=== PATIENT | female | born 1940 | race Caucasian/White ===

== ENCOUNTER 2020-08-09 23:59 | Emergency (ER) | payer MEDICARE, BC ==
--- NOTE | 2020-08-10 00:47 | EDM.PDOC ---
ED HPI GENERAL MEDICAL PROBLEM - General Chief Complaint: Upper Extremity Injury/Pain Stated Complaint: REACTION TO BUG BITE Time Seen by Provider: 08/10/20 00:20 Source of Information: Reports: Patient, Family History Limitations: Reports: No Limitations - History of Present Illness INITIAL COMMENTS - FREE TEXT/NARRATIVE: 80-year-old female presents with a large painful swollen area on her right forearm. 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 It is very tense and painful, starting to bruise on the surface. No history of trauma that she knows of. She was recently on Plavix but that was stopped because of a significant GI bleed recently where she needed "14 units of blood "at [facility]. Onset: Sudden (Developed over the past 2 hours) Location: Reports: Upper Extremity, Right Associated Symptoms: Reports: No Other Symptoms Right Middle Posterior Arm Pain Score (Numeric/FACES): 10 - Related Data Allergies Allergy/AdvReac Type Severity Reaction Status Date / Time azithromycin Allergy Cannot Verified 08/10/20 00:17 Remember codeine Allergy Stomach Verified 08/10/20 00:17 Upset metoprolol Allergy Other Verified 08/10/20 00:17 Home Meds: Home Meds Amitriptyline [Elavil] 25 mg PO BEDTIME 08/10/20 [History] Aspirin [Halfprin] 81 mg PO DAILY 08/10/20 [History] Escitalopram Oxalate [Lexapro] 20 mg PO DAILY 08/10/20 [History] Losartan [Cozaar] 100 mg PO DAILY 08/10/20 [History] Rosuvastatin [Crestor] 10 mg PO DAILY 08/10/20 [History] paricalcitoL [Paricalcitol] 3 mcg IV ASDIRECTED 08/10/20 [History] Past Medical History HEENT History: Reports: Impaired Vision Cardiovascular History: Reports: High Cholesterol, Hypertension Respiratory History: Reports: Pneumonia, Recurrent Genitourinary History: Reports: Chronic 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: Musculoskeletal History: Reports: Neck Pain, Chronic, Osteoarthritis Neurological History: Reports: TIA Psychiatric History: Reports: Depression Hematologic History: Reports: Blood Transfusion(s) - Infectious Disease History Infectious Disease History: Reports: Chicken Pox, Measles, Mumps, Novel Coronavirus, Shingles - Past Surgical History GI Surgical History: Reports: Cholecystectomy, Hernia, Abdominal, Hernia, Inguinal, Hernia Repair/Other Other GI Surgeries/Procedures: kidney transplant Social & Family History - Tobacco Use Tobacco Use Status *Q: Never Tobacco User - Caffeine Use Caffeine Use: Reports: Tea - Recreational Drug Use Recreational Drug Use: No Review of Systems - Review of Systems Review Of Systems: See Below Constitutional: Denies: Fever Respiratory: Reports: No Symptoms Cardiovascular: Reports: No Symptoms Skin: Reports: Pallor, Bruising Neurological: Denies: Headache, Paresthesia ED EXAM, GENERAL - Physical Exam Exam: See Below Exam Limited By: No Limitations General Appearance: Alert, Mild Distress (Looks fairly uncomfortable) Head: Atraumatic Respiratory/Chest: No Respiratory Distress, Lungs Clear Cardiovascular: Regular Rate, Rhythm Extremities: Other (Exam is otherwise limited to the right arm. The patient has fistulas on the flexor surface that are normal, on the extensor surface of the forearm she has a tight, swollen hematoma extending over half of the distance to the wrist.) Neurological: Alert, Oriented Course - Vital Signs Last Recorded V/S: Last Vital Signs Temp Pulse 100 08/10/20 00:15 Resp 17 08/10/20 00:15 BP 191/106 H 08/10/20 00:15 Pulse Ox 98 08/10/20 00:15 - Re-Assessments/Exams Free Text/Narrative Re-Assessment/Exam: 08/10/20 00:45 A 3 inch Brett wrap was applied onto the forearm, and the patient was given 10 Percocet to use for pain control. Also encouraged to ice the area down and recheck tomorrow as she has dialysis scheduled in the morning at [facility]. She may ultimately need to be transferred to [facility] for surgical evacuation of the hematoma as well as dialysis. Departure - Departure Time of Disposition: 00:48 Disposition: Home, Self-Care 01 Clinical Impression: Traumatic hematoma of right forearm Qualifiers: Encounter type: initial encounter Qualified Code(s): S50.11XA - Contusion of right forearm, initial encounter - Discharge Information Instructions: Elastic Bandage and RICE Therapy Referrals: PCP,None [Primary Care Provider] - Forms: ED Department Discharge Care Plan Goals: Continue wrapping forearm with mild pressure to try to reduce swelling, ice to the area may be beneficial and recheck tomorrow prior to dialysis. Use pain medication as prescribed. Sepsis Event Note (ED) - Evaluation Sepsis Screening Result: No Definite Risk - Focused Exam Vital Signs: Vital Signs Pulse Resp BP Pulse Ox 08/10/20 00:15 100 17 191/106 H 98
== END 2020-08-10 00:53 | disposition home or self-care (01) ==
LOC: JP.ED 23:59
DX: S50.11XA Contusion of right forearm, initial encounter (principal); E78.00 Pure hypercholesterolemia, unspecified; I12.9 Hypertensive chronic kidney disease with stage 1 through stage 4 chronic kidney disease, or unspecified chronic kidney disease; N18.9 Chronic kidney disease, unspecified; Z86.73 Personal history of transient ischemic attack (TIA), and cerebral infarction without residual deficits; Z88.1 Allergy status to other antibiotic agents; Z88.5 Allergy status to narcotic agent; Z88.8 Allergy status to other drugs, medicaments and biological substances; Z79.02 Long term (current) use of antithrombotics/antiplatelets; X58.XXXA Exposure to other specified factors, initial encounter
CPT/HCPCS: 99283